=== PATIENT | female | born 1955 | race Caucasian/White ===

== ENCOUNTER 2019-01-13 05:20 | Inpatient (IN) ==
--- NOTE | 2019-01-08 07:56 | EKG Report ---
Test Performed on : 01/08/2019 07:52:13 AM Test Reason : PAT Blood Pressure : / mmHG Vent. Rate : 075 BPM Atrial Rate : 075 BPM P-R Int : 166 ms QRS Dur : 102 ms QT Int : 430 ms P-R-T Axes : 081 -07 063 degrees QTc Int : 480 ms Normal sinus rhythm. Nonspecific ST abnormality Abnormal ECG When compared with ECG of 21-JUN-2017 08:50, T wave inversion no longer evident in Inferior leads Confirmed by Soo MOSLEY, Carlos Wakefield ([id number]) on 01/09/2019 8:18:13 PM
[2019-01-08 08:07] LABS: URINE SOURCE CLEAN CATCH
[2019-01-08 08:14] LABS: HEMATOCRIT 37.3 % (37.0-47.0); HEMOGLOBIN 13.2 g/dL (12.0-16.0); MCV 90.5 FL (81-99); RBC 4.12 XMIL (4.2-5.4); WBC 4.51 X1000 (4.8-10.8)
[2019-01-08 08:15] LABS: BASO# 0.03 X1000 (0.0-0.2); BASO% 0.7 % (0.0-0.8); BILIRUBIN URINE NEGATIVE (NEGATIVE); BLOOD URINE NEGATIVE (NEGATIVE); COLOR YELLOW; EOS% 2.2 % (0.0-10.0); GLUCOSE URINE NEGATIVE (NEGATIVE); KETONE URINE NEGATIVE (NEGATIVE); LEUKOCYTES URINE NEGATIVE (NEGATIVE); LYMPH# 2.01 X1000 (1.2-3.4); LYMPH% 44.6 % (20.5-51.1); MCHC 35.4 g/dL (33-37); MONO# 0.43 X1000 (0.11-0.59); MONO% 9.5 % (1.7-9.3); MPV 9.1 FL (7.4-10.4); NEUT# 1.94 X1000 (1.4-6.5); NITRITE URINE NEGATIVE (NEGATIVE); PLT 261 X1000 (130-400); PROTEIN URINE NEGATIVE (NEGATIVE); RDW 12.1 % (11.5-14.5); SP GRAVITY URINE 1.007; TURBIDITY URINE CLEAR (CLEAR); UROBILINOGEN URINE NORMAL (NORMAL)
[2019-01-08 08:16] LABS: UR EPITHELIAL CELLS <10 /HPF (<10); URINE BACTERIA NEGATIVE /HPF; URINE RBC <10 /HPF (<10); URINE WBC <10 /HPF (<10)
[2019-01-08 08:19] LABS: INR 0.9; PROTIME 12.2 Seconds (11.0-16.0)
[2019-01-08 08:20] LABS: PTT 25.8 Seconds (22.3-41.8)
[2019-01-08 09:17] LABS: AGAP 14; BUN 11 mg/dL (8-22); CALCIUM 9.2 mg/dL (8.8-10.2); CHLORIDE 94 mmol/L (98-107); COSMO 266; CREATININE 0.6 mg/dL (0.5-0.9); ESTIMATED GFR > 60; GLUCOSE 108 mg/dL (70-104); SODIUM 133 mmol/L (136-145); TCO2 25 mmol/L (25-35)
[2019-01-08 09:54] LABS: HEMOGLOBIN A1C 5.3 % (4.8-6.0)
[2019-01-13] MEDS ORDERED: PEPCID ONE (05:36)
[2019-01-13] MEDS ORDERED: REGLAN ONE (05:36)
[2019-01-13] MEDS ORDERED: COLACE ONE (05:36)
[2019-01-13] MEDS ORDERED: LYRICA ONE (05:37)
[2019-01-13] MEDS ORDERED: KEFZOL 1 GM/D5W 1 GM/50 ML IVPB ONE (05:37)
[2019-01-13] MEDS ORDERED: LR 1,000 ML ONE ×2 (05:37→07:07)
[2019-01-13] MEDS ORDERED: DIPRIVAN 1% 500 MG/50 ML BOTTLE ONE (06:25)
[2019-01-13] MEDS ORDERED: VANCOMYCIN ONE (06:31)
[2019-01-13] MEDS ORDERED: TORADOL ONE (06:31)
[2019-01-13] MEDS ORDERED: EXPAREL 1.3% ONE (06:31)
[2019-01-13] MEDS ORDERED: SODIUM CHLORIDE 0.9% ONE (06:31)
[2019-01-13] MEDS ORDERED: DURAMORPH ONE (06:31)
[2019-01-13] MEDS ORDERED: SENSORCAINE 0.25%/EPI 1:200,000 ONE (06:31)
[2019-01-13] MEDS ORDERED: XYLOCAINE-MPF 2% ONE (06:34)
[2019-01-13] MEDS ORDERED: DECADRON ONE (06:34)
[2019-01-13] MEDS ORDERED: FENTANYL ONE (06:37)
[2019-01-13] MEDS ORDERED: VERSED ONE (06:37)
[2019-01-13] MEDS ORDERED: OFIRMEV 1000 MG/ISOTONIC SOLN 1,000 MG/100 ML BOTTLE ONE (07:44)
[2019-01-13] MEDS ORDERED: ZOFRAN ONE (07:44)
[2019-01-13] MEDS: CYKLOKAPRON 1,000 MG/NS 2,000 MG/200 ML IVPB ONE ×2 (07:45→09:05)
[2019-01-13] MEDS ORDERED: ROBINUL ONE (07:53)
[2019-01-13 08:30] LABS: URINE SOURCE CATH
[2019-01-13 08:32] LABS: BILIRUBIN URINE NEGATIVE (NEGATIVE); BLOOD URINE NEGATIVE (NEGATIVE); COLOR STRAW; GLUCOSE URINE NEGATIVE (NEGATIVE); KETONE URINE NEGATIVE (NEGATIVE); LEUKOCYTES URINE NEGATIVE (NEGATIVE); NITRITE URINE NEGATIVE (NEGATIVE); PH URINE 6.5; PROTEIN URINE NEGATIVE (NEGATIVE); SP GRAVITY URINE 1.006; TURBIDITY URINE CLEAR (CLEAR); UR EPITHELIAL CELLS <10 /HPF (<10); URINE BACTERIA NEGATIVE /HPF; URINE RBC <10 /HPF (<10); URINE WBC <10 /HPF (<10); UROBILINOGEN URINE NORMAL (NORMAL)
[2019-01-13] MEDS ORDERED: EPHEDRINE ONE (08:33)
[2019-01-13] MEDS ORDERED: DIPRIVAN 1% ONE (08:52)
[2019-01-13] MEDS ORDERED: NS 1,000 ML ONE (09:22)
--- NOTE | 2019-01-13 10:46 | OPERATIVE NOTE ---
PROCEDURE DATE: 01/13/2019 PREOPERATIVE DIAGNOSIS: Left knee degenerative joint disease. POSTOPERATIVE DIAGNOSIS: Left knee degenerative joint disease. PROCEDURE PERFORMED: Left total knee arthroplasty using a [facility] size 7 femoral component, a size 6 tibial base plate, a 16 mm articular insert and a 35 mm patellar component. ANESTHESIA: Spinal. SURGEON: Lawrence Morrison MD. COLLECTIONS ANALYST: ANITA Anderson was present throughout the case and whose assistance was critical for successful completion of case. BLOOD LOSS: Minimal DRAIN: Hemovac x1. TOURNIQUET TIME: Approximately an hour. DESCRIPTION OF PROCEDURE: The patient brought to the operative suite and placed in supine position. After successful administration of spinal anesthesia, a well-padded tourniquet was placed on left proximal thigh. Left lower extremity was prepped and draped in usual sterile fashion. Leg was exsanguinated. Tourniquet insufflated to 350 torr. A longitudinal incision made beginning superior pole patella and extending distally to the tibial tuberosity. This was dissected sharply through skin down to the capsule. A medial capsulotomy was then performed. The medial capsule was elevated off the medial tibial plateau. The prepatellar fat pad was elevated. Then, the ACL, PCL, medial meniscus, and lateral meniscus were excised. A drill was entered into the center of distal femur. Intramedullary guide was placed. The cutting block was pinned in place. This cut was made with oscillating saw. Attention was directed to the tibia. A drill was entered into the center of the tibia. Intramedullary guide was placed. Alignment checked with drop tanvir referencing off the anterior cortex of the tibia and the second ray of the foot. The tibial cutting block was pinned in place and the articular surface tibial plateau was removed with oscillating saw. Extension gaps were checked and found to be tight in extension. A medial release performed then it was balanced in extension at 16 mm. We set the flexion gap to 25 mm. However, it was causing the knee to internally rotate the femoral component. Therefore, we set the external rotation at 3 degrees and measured the femur at a size 7. A size 7 femoral guide was driven into place and the anterior cuts, chamfer cuts, and posterior condylar cuts were made with the oscillating saw. Marginal osteophytes to monitor osteophytes were removed with a rongeur. A box cutting block was pinned into place. Box cut was made a box osteotome and oscillating saw. Posterior condyle osteophytes were removed with the curved osteotome and rongeur. Osteophytes removed off the tibia as well. The tibia sized to a size 6. A size 6 guide was used for the fin punch. The tibial trial, femoral trial and 16 mm articular insert were placed and taken through range of motion and found have excellent alignment, balancing range of motion. Attention was then directed to patella. 9 mm of the articular surface of the patella were removed with oscillating saw. Patella sized to size 35. A size 35 guide was used to drill peg holes. The lateral facet was chamfered 30 to 45 degrees. Patella trial was placed taken through range of motion found have excellent patella tracking. All trials were then removed. Knee was copiously irrigated and dried, being certain all bone debris was removed. The tibial component, femoral component and patellar component were cemented into place, excess cement being removed with a [place]. Once the cement had hardened excess cement was again removed with osteotome. The knee was again copiously irrigated and dried, being certain all bone and cement debris removed. The trial articular insert was removed. The knee was copiously infiltrated with Exparel including posterior capsule, anterior capsule, anterior musculature, and subcutaneous tissue. The tourniquet was deflated and hemostasis was obtained with electrocautery. The knee was again copiously irrigated with normal saline containing irrigant and Vashe irrigation. The definitive 16 mm articular insert was locked into place. A drain was placed exiting superior lateral and buried in the lateral gutter. The medial arthrotomy was closed with #1 Vicryl. Skin edge approximated with 2-0 Vicryl. Skin was closed with Prineo and a sterile dressing was applied. The patient tolerated the procedure well without complications. At the end of the procedure all counts were correct x2. The patient was transferred to the recovery room stable condition. cc: Lawrence Morrison MD
[2019-01-13] MEDS ORDERED: AMBIEN PO PRN (11:15)
[2019-01-13] MEDS ORDERED: MORPHINE IV PRN ×3 (11:15)
[2019-01-13] MEDS ORDERED: ZOFRAN ODT PO PRN (11:15)
[2019-01-13] MEDS ORDERED: OXY IR PO PRN (11:15)
[2019-01-13] MEDS ORDERED: ZOFRAN IV PRN (11:15)
[2019-01-13] MEDS ORDERED: MILK OF MAGNESIA PO PRN (11:15)
[2019-01-13] MEDS: NS 1,000 ML IV SCH ×2 (13:02→23:24)
[2019-01-13] MEDS: ULTRAM PO SCH ×2 (13:08→18:22)
[2019-01-13] MEDS: OXY IR PO PRN ×2 (16:41→23:28)
[2019-01-13] MEDS: TYLENOL PO SCH ×2 (16:43→21:45)
[2019-01-13] MEDS: KEFZOL 1 GM/D5W 1 GM/50 ML IVPB IV SCH ×2 (16:46→23:25)
[2019-01-13] MEDS ORDERED: DESYREL PO PRN (18:00)
[2019-01-13] MEDS: CELEBREX PO SCH (21:44)
[2019-01-13] MEDS: LYRICA PO SCH (21:45)
[2019-01-13] MEDS: PERIDEX MT SCH (21:45)
[2019-01-13] MEDS: COLACE PO SCH (21:45)
[2019-01-14] MEDS: ULTRAM PO SCH ×2 (04:56→12:08)
[2019-01-14] MEDS: TYLENOL PO SCH ×2 (04:57→12:08)
[2019-01-14] MEDS: NS 1,000 ML IV SCH (06:08)
[2019-01-14 07:10] LABS: HEMATOCRIT 31.9 % (37.0-47.0); HEMOGLOBIN 11.3 g/dL (12.0-16.0)
[2019-01-14 07:50] LABS: AGAP 11; BUN 12 mg/dL (8-22); CALCIUM 8.4 mg/dL (8.8-10.2); CHLORIDE 98 mmol/L (98-107); COSMO 266; CREATININE 0.7 mg/dL (0.5-0.9); ESTIMATED GFR > 60; GLUCOSE 99 mg/dL (70-104); POTASSIUM 4.1 mmol/L (3.5-5.1); SODIUM 133 mmol/L (136-145); TCO2 24 mmol/L (25-35)
[2019-01-14 08:43] VITALS: BP 129/67
[2019-01-14] MEDS ORDERED: BENICAR PO SCH (09:00)
[2019-01-14] MEDS ORDERED: ASPIRIN PO SCH (09:00)
[2019-01-14] MEDS ORDERED: DECADRON IV ONE (09:00)
[2019-01-14] MEDS ORDERED: PEPCID PO SCH (09:00)
[2019-01-14] MEDS ORDERED: HYDROCHLOROTHIAZIDE PO SCH (09:00)
[2019-01-14] MEDS ORDERED: LEXAPRO PO SCH (09:00)
[2019-01-14] MEDS ORDERED: WELLBUTRIN PO SCH (09:00)
[2019-01-14] MEDS: CELEBREX PO SCH (11:59)
[2019-01-14] MEDS: COLACE PO SCH (11:59)
[2019-01-14] MEDS: LYRICA PO SCH (12:00)
[2019-01-14] MEDS: PERIDEX MT SCH (12:01)
--- NOTE | 2019-01-15 05:30 | DISCHARGE SUMMARY ---
ADMISSION DATE: 01/13/2019 DISCHARGE DATE: 01/14/2019 DISCHARGE DIAGNOSIS: Left knee degenerative joint disease status post left total knee arthroplasty. DISCHARGE MEDICATIONS: See discharge medication list. DISPOSITION: The patient discharged home with outpatient physical therapy. Instructed to return for any signs or symptoms of infection or deep venous thrombosis. Instructed to return to see Dr. Morrison next . HOSPITAL COURSE: On the day of admission, patient underwent a left total knee arthroplasty. Her postoperative course is unremarkable. At discharge, she is afebrile tolerating a regular diet and ambulating well with physical therapy. Her wound is clean, dry, and intact without sign of infection. She is discharged home in stable condition with instructions to follow up as described above. cc: Lawrence Morrison MD [facility]
== END 2019-01-14 12:56 | disposition home or self-care (01) | DRG 470 ==
LOC: OR 05:20 → 4N 05:20 → OBSVTOIN 10:05
PROVIDERS: ADMIT Orthopaedic Surgery; ATTEND Orthopaedic Surgery